=== PATIENT | male | born 1955 | race Caucasian/White ===

== ENCOUNTER 2017-05-16 08:55 | Emergency (ER) | payer OTHER ==
[2017-05-16 09:07] VITALS: TEMP 98.8
[2017-05-16 09:45] LABS: COLOR YELLOW; LEUKOCYTE ESTERASE,URINE NEGATIVE (NEGATIVE); NITRITE,URINE NEGATIVE (NEGATIVE)
--- NOTE | 2017-05-16 09:47 | EDPHY ---
H & P Smoking Status: Never smoked Time Seen by Provider: 05/16/17 09:24 HPI/ROS: CHIEF COMPLAINT: Abdominal pain, flank pain HISTORY OF PRESENT ILLNESS: 61-year-old male presents to the emergency department with right flank pain that began 2 days ago. The patient has a history of kidney stones and has required lithotripsy in the past. He states that the pain in his right flank began to move into his right lower abdomen however he states that this feels different now that he is having recurring right flank pain. No nausea or vomiting. No chest pain or difficulty breathing. No urinary symptoms. No fevers or chills. REVIEW OF SYSTEMS: Constitutional: No fever, no chills. Eyes: No double or blurry vision. ENT: No sore throat. Respiratory: No cough, no shortness of breath. Cardiac: No chest pain. Gastrointestinal: Abdominal pain as above. No vomiting or diarrhea Genitourinary: No dysuria. Musculoskeletal: Right flank pain. No neck pain. Skin: No rashes. Neurological: No headache. (RyannePadmini Teagan) Past Medical/Surgical History: Kidney stones requiring lithotripsy, aortic aneurysm, bicuspid aortic valve repair (Valery Pearlrina Teagan) Social History: from [place] (Valery Pearlnazario Candelaria) Physical Exam: General Appearance: Alert, no distress. Afebrile. No apparent distress. Eyes: Pupils equal and round. Extraocular motions are all intact. ENT: Mouth: Mucous membranes moist. Respiratory: No wheezing, rhonchi, or rales, lungs are clear to auscultation. Cardiovascular: Regular rate and rhythm. Gastrointestinal: Abdomen is soft and nontender, no masses, no rebound or guarding, bowel sounds normal. Mild CVA tenderness on the right, none on the left. Neurological: Alert and oriented x 3, cranial nerves II through XII grossly intact Skin: Warm and dry, no rashes. Musculoskeletal: Nontender to palpate along the cervical, thoracic or lumbar spine. Neck is supple. Extremities: Full range of motion and no peripheral edema. Psychiatric: Patient is oriented X 3, there is no agitation. (Valery Pearlnazario Candelaria) Constitutional: Initial Vital Signs Temperature (C) 37.1 C 05/16/17 09:03 Heart Rate 70 05/16/17 09:03 Respiratory Rate 16 05/16/17 09:03 Blood Pressure 161/87 H 05/16/17 09:03 O2 Sat (%) 98 05/16/17 09:03 O2 Delivery Mode Room Air Allergies/Adverse Reactions: penicillin G Allergy (Verified 05/16/17 09:01) Home Medications: Medication Instructions Recorded Coumadin 05/16/17 Levothyroxine 05/16/17 Metoprolol Succinate 05/16/17 Ramipril 05/16/17 Tamsulosin HCl [Flomax] 0.4 mg PO DAILY #10 cap 05/16/17 Medical Decision Making - Diagnostics Imaging: Discussed imaging studies w/ bingo caller Radiologist - Diagnostics Imaging Results: Imaging Impressions Abdomen/Pelvis CT 05/16/17 09:44 Impression: 1. Bilateral nephrolithiasis. 2. Moderate right-sided hydronephrosis secondary to UVJ calculus that is either at the distal UVJ or just within the bladder. 3. Right renal cysts. Attention: This CT examination is specifically designed to evaluate patients who are clinically suspected of having acute obstructive uropathy. This examination does not use radiographic contrast, and as such, provides only a limited evaluation of the abdomen, pelvis and retroperitoneum. If there is further clinical suspicion for pathological conditions other than obstructive uropathy, a complete CT evaluation of the abdomen and pelvis utilizing intravenous, oral, and rectal contrast should be considered. Findings discussed with Padmini Pearl PA-C at 10:43 hour, 05/16/2017. ED Course/Re-evaluation: 61-year-old male presents to the emergency department with right flank pain. Patient is concerned that he has recurring kidney stone although he states he has pain that initially started in his right flank and has now migrated to his right lower abdomen, however now he has pain that is recurring in his right flank area. He has required lithotripsy in the past for his kidney stones. Patient is requesting CT scan. Laboratory tests reveal normal CBC and normal chemistries. Renal function is normal with a creatinine 1.2. Urinalysis reveals 25-50 red blood cells without signs of infection. CT scan of the abdomen and pelvis without contrast reveals 4.5 x 5 4 mm stone at the right UVJ with moderate hydronephrosis. The patient takes Coumadin daily and therefore decision was made not to use the IV Toradol. He was given Flomax 0.4 mg p.o.. Patient feels comfortable being discharged home he will have close follow-up with his urologist. He was also instructed to return to the emergency department if he developed recurring pain , fever, or if he seems worse in any way. Both the patient at bedside verbalized understanding and agreed. (RyanneValeryPadmini M) I did not see this patient while he was in the emergency department. However his care was discussed with the PA while the patient was in the department. I agree with treatment plan and management (Edd Haney) Differential Diagnosis: Including but not limited to kidney stone, renal colic, pyelonephritis, urinary tract infection, acute appendicitis (Padmini Pearl) - Data Points Laboratory Results: Laboratory Results 05/16/17 09:50 05/16/17 09:50 05/16/17 05/16/17 05/16/17 09:50 09:50 09:43 WBC 9.73 10^3/uL H 10^3/uL (3.80-9.50) RBC 5.45 10^6/uL 10^6/uL (4.40-6.38) Hgb 17.7 g/dL H g/dL (13.7-17.5) Hct 49.7 % % (40.0-51.0) MCV 91.2 fL fL (81.5-99.8) MCH 32.5 pg pg (27.9-34.1) MCHC 35.6 g/dL g/dL (32.4-36.7) RDW 12.3 % % (11.5-15.2) Plt Count 164 10^3/uL 10^3/uL (150-400) MPV 11.3 fL fL (8.7-11.7) Neut % (Auto) 71.9 % % (39.3-74.2) Lymph % (Auto) 17.0 % % (15.0-45.0) [place] % (Auto) 9.9 % % (4.5-13.0) Eos % (Auto) 0.5 % L % (0.6-7.6) Baso % (Auto) 0.4 % % (0.3-1.7) Nucleat RBC Rel Count 0.0 % % (0.0-0.2) Absolute Neuts (auto) 7.00 10^3/uL H 10^3/uL (1.70-6.50) Absolute Lymphs (auto) 1.65 10^3/uL 10^3/uL (1.00-3.00) Absolute Monos (auto) 0.96 10^3/uL H 10^3/uL (0.30-0.80) Absolute Eos (auto) 0.05 10^3/uL 10^3/uL (0.03-0.40) Absolute Basos (auto) 0.04 10^3/uL 10^3/uL (0.02-0.10) Absolute Nucleated RBC 0.00 10^3/uL 10^3/uL (0-0.01) Immature Gran % 0.3 % % (0.0-1.1) Immature Gran # 0.03 10^3/uL 10^3/uL (0.00-0.10) Sodium 137 mEq/L mEq/L (134-144) Potassium 4.3 mEq/L mEq/L (3.5-5.2) Chloride 102 mEq/L mEq/L (97-110) Carbon Dioxide 23 mEq/l mEq/l (22-31) Anion Gap 12 mEq/L mEq/L (8-16) BUN 15 mg/dL mg/dL (7-23) Creatinine 1.2 mg/dL mg/dL (0.7-1.3) Estimated GFR > 60 Glucose 133 mg/dL H mg/dL (70-100) Calcium 9.7 mg/dL mg/dL (8.5-10.4) Urine Color Urine Appearance Urine pH Ur Specific [place] Urine Protein Urine Ketones Urine Blood Urine Nitrate Urine Bilirubin Urine Urobilinogen Ur Leukocyte Esterase Urine RBC 25-50 /hpf H /hpf (0-3) Urine WBC 1-3 /hpf /hpf (0-3) Ur Epithelial Cells NONE SEEN /lpf /lpf (NONE-1+) Urine Glucose 05/16/17 09:12 WBC RBC Hgb Hct MCV MCH MCHC RDW Plt Count MPV Neut % (Auto) Lymph % (Auto) [place] % (Auto) Eos % (Auto) Baso % (Auto) Nucleat RBC Rel Count Absolute Neuts (auto) Absolute Lymphs (auto) Absolute Monos (auto) Absolute Eos (auto) Absolute Basos (auto) Absolute Nucleated RBC Immature Gran % Immature Gran # Sodium Potassium Chloride Carbon Dioxide Anion Gap BUN Creatinine Estimated GFR Glucose Calcium Urine Color YELLOW Urine Appearance CLEAR Urine pH 5.0 (5.0-7.5) Ur Specific [place] 1.010 (1.002-1.030) Urine Protein NEGATIVE (NEGATIVE) Urine Ketones NEGATIVE (NEGATIVE) Urine Blood 3+ H (NEGATIVE) Urine Nitrate NEGATIVE (NEGATIVE) Urine Bilirubin NEGATIVE (NEGATIVE) Urine Urobilinogen NEGATIVE EU EU (0.2-1.0) Ur Leukocyte Esterase NEGATIVE (NEGATIVE) Urine RBC Urine WBC Ur Epithelial Cells Urine Glucose NEGATIVE (NEGATIVE) Medications Given: Discontinued Medications Tamsulosin HCl (Flomax) 0.4 mg PO EDNOW ONE Stop: 05/16/17 10:52 Last Admin: 05/16/17 10:57 Dose: 0.4 mg Departure - Departure Disposition: Home, Routine, Self-Care Clinical Impression: Calculus of right kidney Condition: Good Instructions: Kidney Stones (ED), Renal Colic (ED), Flank Pain (ED) Additional Instructions: Flomax daily until stone passes. Use urine strainer every time urinate until the stone passes. Follow up with your urologist when you return to [place] next week. Return to the emergency department if you develop fever, difficulty urinating, recurring pain or any other concerns. Referrals: Joshua Santoyo MD [Medical Doctor] - 2-3 days, call for appt. (Urologist on-call) STEPHANIE RIVERA MD [Other] - As per Instructions Prescriptions: Tamsulosin HCl [Flomax] 0.4 mg PO DAILY #10 cap
[2017-05-16 09:54] LABS: RBC,URINE 25-50 /hpf (0-3)
[2017-05-16 09:58] LABS: % IMMATURE GRANULYOCYTES 0.3 % (0.0-1.1); ABSOLUTE IMMATURE GRANULOCYTES 0.03 10^3/uL (0.00-0.10); ADD DIFF? NO; ADD MORPH? NO; ADD SCAN? NO; ATYPICAL LYMPHOCYTE FLAG 0 (0-99); FRAGMENT RBC FLAG 0 (0-99); HEMATOCRIT 49.7 % (40.0-51.0); HEMOGLOBIN 17.7 g/dL (13.7-17.5); LEFT SHIFT FLG 0 (0-99); LIPEMIA HEMOLYSIS FLAG 90 (0-99); MEAN CELL HEMOGLOBIN 32.5 pg (27.9-34.1); MEAN CELL HEMOGLOBIN CONCENTR. 35.6 g/dL (32.4-36.7); MEAN CELL VOLUME 91.2 fL (81.5-99.8); MEAN PLATELET VOLUME 11.3 fL (8.7-11.7); PLATELET CLUMPS FLAG 10 (0-99); PLATELET COUNT 164 10^3/uL (150-400); RED BLOOD CELL COUNT 5.45 10^6/uL (4.40-6.38); RED CELL DISTRIBUTION WIDTH 12.3 % (11.5-15.2)
[2017-05-16 10:23] LABS: ANION GAP 12 mEq/L (8-16); CALCIUM 9.7 mg/dL (8.5-10.4); CARBON DIOXIDE 23 mEq/l (22-31); CHLORIDE 102 mEq/L (97-110); CREATININE 1.2 mg/dL (0.7-1.3); GLOMERULAR FILTRATION RATE > 60; GLUCOSE 133 mg/dL (70-100); POTASSIUM 4.3 mEq/L (3.5-5.2); SODIUM 137 mEq/L (134-144)
[2017-05-16] MEDS ORDERED: TAMSULOSIN HCL 0.4 MG CAP PO ONE (10:51)
[2017-05-16 11:13] VITALS: BP 136/93; PULSE 84; RESP 18; O2SAT 94
== END 2017-05-16 11:30 | disposition home or self-care (01) ==
DX: N20.0 Calculus of kidney (principal); Z79.01 Long term (current) use of anticoagulants